=== PATIENT | female | born 1995 | race Hispanic/Latino ===

== ENCOUNTER → 2020-10-17 16:06 | Outpatient (CLI) | payer SELFPAY ==
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
== END ==
PROVIDERS: Referring Provider Student in an Organized Health Care Education/Training Program; Visit Provider Student in an Organized Health Care Education/Training Program
DX: M54.5 Low back pain (principal)
CPT/HCPCS: 72100